=== PATIENT | female | born 1945 | race Caucasian/White ===

== ENCOUNTER 2020-01-08 09:08 | Outpatient (CLI) | payer MEDICARE, SELFPAY ==
[2020-01-08 10:28] LABS: Anion Gap 15.1 mmol/L (7-16); Blood Urea Nitrogen 10 mg/dL (7-18); Calcium 9.1 mg/dL (8.5-10.1); Carbon Dioxide 27 mmol/L (21-32); Chloride 100 mmol/L (98-108); Estimated Glomerular Filt Rate > 60; Glucose 149 mg/dL (70-99); Osmolality Calculated 288 mOsm/kg (285-295); Potassium 4.1 mmol/L (3.5-5.1); Sodium 138 mmol/L (136-145)
== END 2020-01-08 09:09 | disposition home or self-care (01) ==
DX: E87.6 Hypokalemia (principal)
CPT/HCPCS: 36415; 80048

== ENCOUNTER 2021-10-13 18:30 | Emergency (ER) | payer OTHER, MEDICARE, SELFPAY ==
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
[2021-10-13 18:36] VITALS: BP 166/67; PULSE 77; RESP 14; O2SAT 99
--- NOTE | 2021-10-13 19:38 | PC.NURSE ---
Per Dr. Hutchison EDP, gave vbo to remove C-Collar following negative scan.
--- NOTE | 2021-10-13 19:43 | PC.NURSE ---
Patient to X-Ray via stretcher. Stable.
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
[2021-10-13] MEDS: ACETAMINOPHEN 325 MG TABLET 650 MG PO (20:53)
[2021-10-13 20:55] VITALS: BP 136/49; PULSE 80; RESP 18; TEMP 36.6; O2SAT 98
== END 2021-10-13 21:06 | disposition home or self-care (01) ==
PROVIDERS: Emergency Provider Family Medicine
DX: S40.011A Contusion of right shoulder, initial encounter (principal); R90.82 White matter disease, unspecified; V89.2XXA Person injured in unspecified motor-vehicle accident, traffic, initial encounter
CPT/HCPCS: 70450; 72125; 72126; 73030; 99284; A9270; Q9967

== ENCOUNTER 2022-01-17 12:42 | Outpatient (RCR) | payer MEDICARE, SELFPAY ==
--- NOTE | 2022-01-18 09:40 | PTOPEVAL ---
Thank you for referring Nery Stewart to [facility] [place].? The patient is scheduled to be seen for therapy? __3__x/week for 12 visits. Please review, sign, date and return this plan of care OTF. I agree with and certify that the following plan of care is medically necessary. Referring Physician Date Admitting Provider: Attending Provider: Driss Peres, Referring Provider: *PT Outpatient Evaluation Start: 01/17/22 12:47 Freq: Status: Active Protocol: Document 01/17/22 12:48 FABIANO (Rec: 01/17/22 13:18 [email or web address] [email or web address]) Therapy Assessment Status Assessment Status Assessment Status Evaluation Outpatient Past Medical History Cardiovascular History Hx Hypercholesterolemia Yes Hx Hypertension Yes Gastrointestinal History Hx Cholecystectomy Yes Musculoskeletal History Hx Joint Replacement Yes: hip Other History Hx Cancer Yes: cervical Evaluation Information Problem Diagnosis right rotator cuff tear, right shoulder pain Onset 12/03/21 Subjective Information Pt. reports she fell onto the Query Text:As Reported By Patient/ right arm the first part of Family December. She describes fall directly onto the elbow. She reports that she did xray which revealed indication of a rotator cuff tear on the right. She describes her pain throughout the entire right arm and has occassional numbness in the arm. She also descrbies pain in her neck. She states that she does take Tylenol before bed which helps her to sleep. She states that raising the arm overhead is painful and cannot reach away from her body. She states that her goal is to decrease her right arm and shoulder pain. Prior Level of Function Activity Level (Last 3 Months) Occupation retired Hand Dominance Right Activity of Daily Living Ability Independent Indoor/Home Mobility Independent Community Mobility Independent Stairs Ability Independent Functional Cognition (Planning, Shopping Independent , Taking Medications) Cooking Yes Cleaning Yes Laundry
--- NOTE | 2022-02-10 12:55 | PTOPEVAL ---
Thank you for referring Nery Stewart to [facility] [place].? The patient is scheduled to be seen for therapy? __2__x/week for 1 week. Please review, sign, date and return this plan of care OTF. I agree with and certify that the following plan of care is medically necessary. Referring Physician Date Admitting Provider: Attending Provider: Driss Peres, Referring Provider: *PT Outpatient Evaluation Start: 01/17/22 12:47 Freq: Status: Active Protocol: Document 02/10/22 12:48 FABIANO (Rec: 02/10/22 12:55 [email or web address]) Therapy Assessment Status Assessment Status Assessment Status Progress Outpatient Past Medical History Cardiovascular History Hx Hypercholesterolemia Yes Hx Hypertension Yes Gastrointestinal History Hx Cholecystectomy Yes Musculoskeletal History Hx Joint Replacement Yes: hip Other History Hx Cancer Yes: cervical Evaluation Information Problem Diagnosis right rotator cuff tear, right shoulder pain Onset 12/03/21 Subjective Information Pt. reports that she is doing Query Text:As Reported By Patient/ much better. She states that Family pain is less intense and is moving the right arm further Pain Assessment Timing of Pain Assessment Timing of Pain Assessment Pre-Treatment Pain Scale Pain Scale Used Numeric (1 - 10) Self Report Pain Assessment Right Shoulder(s) Reported Pain Level 2 Pain Score Pain Score 2: Self Report Interventions Used Interventions Used By Clinicians Electrical Stimulation, Exercise,Heat Upper Extremity Range of Motion General Upper Extremity Range of Motion Gross Upper Extremity Range of Motion -right shoulder flexion AROM Comments 86 degrees -right shoulder flexion PROM 134 degrees -right shoulder IR pt. reach the lower lumbar region -right shoulder ER pt. reach the occiput General Exercise General Exercises Exercise Description -passive stretching into Query Text:Record Sets, Reps, flexion, ER and IR at the Resistance, and Position right shoulder x 8 minutes -resisted shoulder retraction x 20 red -resisted shoulder extension with scapular depression x 20 red -resisted shoulder IR and ER on right x 20 red band
== END 2022-02-18 13:08 | disposition home or self-care (01) ==
LOC: CHSPT 12:42
PROVIDERS: Visit Provider Orthopaedic Surgery
DX: M75.101 Unspecified rotator cuff tear or rupture of right shoulder, not specified as traumatic (principal)
CPT/HCPCS: 97014; 97110; 97161; G0283

== ENCOUNTER 2023-05-05 14:35 | Outpatient (RCR) | payer MEDICARE, SELFPAY ==
--- NOTE | 2023-05-05 15:39 | OPREHPOC ---
Outpatient Therapy Plan of Care This is a Multidisciplinary Plan of Care that may contain components documented by all disciplines (PT, OT, and ST.) PT Problem 1 PT Problem #1 Knowledge Deficit PT Goal 1 Goal Patient to demonstrate independence with HEP Target Visit 6 PT Problem 2 PT Problem #2 Pain PT Goal 1 Goal 1. Patient to report highest pain at 2/10 2. Patient to report ability to sleep with no disturbance due to hip pain Target Visit 12 PT Problem 3 PT Problem #3 Impaired Flexibility PT Goal 1 Goal Patient to demonstrate B HS flexibility to 20 deg and piriformis limitation to mild to return to standing for prolonged periods for hosue hold tasks Target Visit 12 PT Problem 4 PT Problem #4 Impaired Strength PT Goal 1 Goal Patient to demonstrate 4+/5 strength of B hip abductors to improve ability to ambulate prolonged distances Target Visit 12 PT Problem 5 PT Problem #5 Impaired Functional Mobil PT Goal 1 Goal 1. Patient to demonstrate 20% improvement in LEFS 2. Patient to report ability to complete house hold tasks with no increase in pain
--- NOTE | 2023-05-05 15:39 | PTOPEVAL1 ---
Assessment and note entered by Genesis Valle DPT Evaluation Information Assessment Status Evaluation Diagnosis low back and R hip pain Onset 05/02/23 Subjective Information Patient reports as of the last 2 months her R hip has started hurting. She reports she had a hip replacement in 2019 and has fallen a few times so she had a negative xray. Patient reports pain with walking, sitting for long periods of time and sleeping. She reports change in position does help to reduce pain. She reports pain is located at lateral hip. Reported Pain Level Pain Score 0: Self Report Assessment PT Clinical Summary Patient is a 77 year old female who presents to PT with low back and R hip pain. Patient demonstrates decreased B LE strength, decreased lumbar ROM and impaired posture limiting her ability to ambulate prolonged periods, stand for times needed to complete house hold tasks and sit for prolonged periods of time. Patient would benefit from skilled PT to address impairments and return to PLOF. Plan of Care Interventions Electrical Stimulation,Gait Training,Hot Pack/Cold Pack,Manual Therapy,Mechanical Traction,Neuro Re- education,Patient/Caregiver Educati,Therapeutic Activities,Therapeutic Exercise PT Services Indicated Yes Treatment Frequency and 2x weekly for 12 visits Duration These treatments will address the objective and functional deficits as defined above. The patient will be advanced safely and appropriately in order for the patient to progress towards his/her prior level of function. Additional exercises will be introduced and as well as a comprehensive home exercise program upon discharge, if needed, ?to ensure carryover of functional gains achieved in the clinic. This treatment plan has been reviewed and agreement upon by the patient.
--- NOTE | 2023-06-06 12:59 | PTOPDC ---
Assessment and note entered by Leonela Chaney, PT Evaluation Information Assessment Status Discharge Diagnosis Low back pain and R hip pain Onset 05/02/23 Subjective Information Nery Stewart reports her back and right hip are feeling better since initiating PT. She is noting she can walk further and now she can sit for as long as she wants. She is able to walk about 1/4 mile and notes right hip pain at that time but if she stops walking for a minute it subsides and she can walk further. She feels she has improved 75- 80% overall and is comfortable continuing on her own with home exercises. Reported Pain Level Pain Score 0: Self Report Assessment PT Clinical Summary Nery Stewart has completed 10 skilled PT visits for low back and right hip pain. She is reporting a 75-80% overall improvement since initiating PT with improved tolerance to walking and no limitations with sitting. She objectively demonstrates improved lumbar AROM, improved right hip strength, improved gait, and improved balance. She will be discharged to an independendent in a home exercise program. Plan of Care PT Services Indicated No
--- NOTE | 2023-06-06 13:00 | OPREHPOC ---
Outpatient Therapy Plan of Care This is a Multidisciplinary Plan of Care that may contain components documented by all disciplines (PT, OT, and ST.) PT Problem 1 PT Problem #1 Knowledge Deficit PT Goal 1 Goal Patient to demonstrate independence with HEP Target Visit 6 Progress Met PT Problem 2 PT Problem #2 Pain PT Goal 1 Goal 1. Patient to report highest pain at 2/10 2. Patient to report ability to sleep with no disturbance due to hip pain Target Visit 12 Progress Met PT Problem 3 PT Problem #3 Impaired Flexibility PT Goal 1 Goal Patient to demonstrate B HS flexibility to 20 deg and piriformis limitation to mild to return to standing for prolonged periods for hosue hold tasks Target Visit 12 Progress Partially Met PT Problem 4 PT Problem #4 Impaired Strength PT Goal 1 Goal Patient to demonstrate 4+/5 strength of B hip abductors to improve ability to ambulate prolonged distances Target Visit 12 Progress Partially Met PT Problem 5 PT Problem #5 Impaired Functional Mobil PT Goal 1 Goal 1. Patient to demonstrate 20% improvement in LEFS 2. Patient to report ability to complete house hold tasks with no increase in pain Progress Met
== END 2023-06-06 14:38 | disposition home or self-care (01) ==
LOC: CHSPT 14:35
PROVIDERS: Visit Provider Physician Assistant Surgical
DX: M25.551 Pain in right hip (principal); M54.16 Radiculopathy, lumbar region; M47.818 Spondylosis without myelopathy or radiculopathy, sacral and sacrococcygeal region
CPT/HCPCS: 97014; 97110; 97140; 97161; 97750; G0283